=== PATIENT | female | born 1975 | race Caucasian/White ===

== ENCOUNTER 2018-06-13 11:34 | Emergency (ER) | payer BC ==
--- OUTSIDE RECORDS SUMMARY | 2018-06-13 11:37 | XMS REPORT ---
:1975 [facility] Address [address] [place] [address] Dr. Lewis[address] [place] [id number] Care Team Providers Name Role Phone DR LESLEY NORTON Unavailable Unavailable Problems This patient has no known problems. Allergies, Adverse Reactions, Alerts This patient has no known allergies or adverse reactions. Medications This patient has no known medications. Encounters Start End Encounter Admission Attending Care Care Encounter Date/Time Date/Time Type Type Clinicians Facility Department ID 2018-04-13 2018-04-13 Outpatient C ARIELA NORTON [facility] [id number] 12:07:00 14:09:00 LESLEY
--- NOTE | 2018-06-13 12:58 | EKG ---
Test Date: 2018-05-13 Test Time: 12:39:34 [employer]: YULIA MEASUREMENT RESULTS: Intervals: Rate: 56 CA: 150 QRSD: 92 QT: 430 QTc: 414 [place]: P: 66 CA: 150 QRS: 73 T: 70 INTERPRETIVE STATEMENTS: Sinus bradycardia Otherwise normal ECG No previous ECG available for comparison Electronically Signed On 06-13-18 12:57:51 RENTAL SALES ASSOCIATE by Aki Goff
[2018-06-13 13:49] LABS: Urine Blood NEGATIVE (NEG); Urine Glucose NEGATIVE (NEG); Urine Protein NEGATIVE (NEG); Urine Specific Gravity 1.015 (1.005-1.030); Urine pH 7.5 (5.0-7.0)
--- NOTE | 2018-06-13 13:58 | RAD REPORT ---
EXAM DESCRIPTION: US - Extrem Venous W Compress Armani - 06/13/2018 1:43 pm CLINICAL HISTORY: SWELLING Bilateral leg edema and swelling. COMPARISON: No comparisons TECHNIQUE: Real-time sonographic interrogation of the left and right lower extremity deep venous sys tems was performed. FINDINGS: Normal compressibility, flow augmentation, phasic flow and spontaneous flow is identified in both the left and right lower extremity deep venous systems. Thrombus is present in both greater saphenous veins. The thrombus on each side is seen terminate appr oximately 1.5 cm from the common femoral veins. Several varicose veins noted in the right calf also d emonstrates thrombus. IMPRESSION: No sonographic evidence of left or right lower extremity deep venous thrombosis. Superfi cial venous thrombosis is seen involving both greater saphenous veins and several varicose veins in t he right calf.
--- NOTE | 2018-06-13 14:05 | RAD REPORT ---
EXAM DESCRIPTION: RAD - Chest Single View - 06/13/2018 1:59 pm CLINICAL HISTORY: swelling lower extremities Chest pain. COMPARISON: No comparisons FINDINGS: Portable technique limits examination quality. The lungs are grossly clear. The heart is normal in size. No displaced fractures. IMPRESSION: No acute intrathoracic process suspected.
[2018-06-13 14:30] LABS: Absolute Lymphocytes (CBC) 1.3 K/uL (0.7-4.9); Absolute Monocytes 0.2 K/uL (0.1-1.3); Absolute Neutrophil 2.5 K/uL (1.8-8.0); Basophils % 0.4 % (0-1.3); Eosinophils % 2.4 % (0-4.4); Hematocrit 34.3 % (36.0-45.0); Lymphocytes % 31.3 % (15.3-44.8); MPV 9.1 fL (7.6-11.3); Monocytes % 4.8 % (3.3-12.3); RBC Red Blood Cell Count 3.64 M/uL (3.86-4.86)
[2018-06-13 14:34] LABS: Protime INR 1.09
[2018-06-13 14:46] LABS: ALT/SGPT 15 U/L (12-78); AST/SGOT 19 U/L (15-37); Albumin 3.6 g/dL (3.4-5.0); Alkaline Phosphatase 61 U/L (45-117); BUN Blood Urea Nitrogen 12 mg/dL (7-18); Bicarbonate 29 mmol/L (21-32); Bilirubin Direct 0.2 mg/dL (0-0.2); Bilirubin Total 0.4 mg/dL (0.2-1.0); Glucose Level 87 mg/dL (74-106); Magnesium 1.8 mg/dL (1.8-2.4); NT PRO-BNP 31 pg/mL (<125); Protein, Total 6.5 g/dL (6.4-8.2); Sodium Level 146 mmol/L (136-145); Troponin (Emerg Dept Use Only) < 0.02 ng/mL (0.0-0.045)
[2018-06-13 14:51] LABS: T3 Free 3.49 pg/mL (2.18-3.98); Thyroid Stimulating Hormone 1.09 uIU/mL (0.360-3.740)
--- NOTE | 2018-06-13 15:44 | RAD REPORT ---
EXAM DESCRIPTION: CT - Chest For Pe Angio - 06/13/2018 3:28 pm CLINICAL HISTORY: Chest pain COMPARISON: None. TECHNIQUE: Dynamically enhanced axial 3 mm thick images of the chest were obtained during administra tion of <100> mL Isovue 370 IV contrast. Coronal and oblique reconstruction images were generated and reviewed. Exam utilizes a protocol for optimal evaluation of pulmonary arterial tree. Maximum intensity projections 3D imaging was utilized All CT scans are performed using dose optimization technique as appropriate and may include automated exposure control or mA/KV adjustment according to patient size. FINDINGS: A pulmonary embolus is not seen. A thoracic aortic aneurysm is not noted. A pleural effusion is not seen. A pericardial effusion is not seen. A lung consolidation is not present. Small to moderate hiatal hernia. Wall of the distal esophagus appears thickened IMPRESSION: Negative for a pulmonary embolism. The wall of the distal esophagus appears thickened which may indicate pathology such as inflammation or mass
--- NOTE | 2018-06-13 16:41 | ER ---
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 Has had this happen in the past and the only abnormality was elevated potassium, reports these episodes are similar to those feelings. Transition of care: patient was not received from another setting of care. Onset of symptoms was June 13, 2018. Risk Assessment: Do you want to hurt yourself or someone else? Patient reports no desire to harm self or others. Initial Sepsis Screen: Does the patient meet any 2 criteria? No. Patient's initial sepsis screen is negative. Does the patient have a suspected source of infection? No. Patient's initial sepsis screen is negative. Care prior to arrival: None. 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 - Social history:: Smoking status: Patient/guardian denies using tobacco. - Ebola Screening: : Patient negative for fever greater than or equal to 101.5 degrees Fahrenheit, and additional compatible Ebola Virus Disease symptoms Patient denies exposure to infectious person Patient denies travel to an Ebola-affected area in the 21 days before illness onset No symptoms or risks identified at this time. Screenin:15 Abuse screen: Denies threats or abuse. Denies injuries from another. Nutritional ca1 screening: No deficits noted. Tuberculosis screening: No symptoms or risk factors identified. Fall Risk None identified. Fall Risk IV access (20 points). Assessment: 13:15 General: Appears in no apparent distress. comfortable, Behavior is calm, cooperative, ca1 appropriate for age. Pain: Denies pain. Neuro: Level of Consciousness is awake, alert, obeys commands, Oriented to person, place, time, situation. Cardiovascular: Heart tones S1 S2 present Capillary refill < 3 seconds Patient's skin is warm and dry. Pulses are all present. Respiratory: Airway is patent Respiratory effort is even, unlabored, Breath sounds are clear bilaterally. GI: Abdomen is flat, non-distended, Bowel sounds present X 4 quads. Abd is soft and non tender X 4 quads. : No signs and/or symptoms were reported regarding the genitourinary system. EENT: No signs and/or symptoms were reported regarding the EENT system. Derm: Skin is intact, is healthy with good turgor, Skin is pink, warm \T\ dry. Musculoskeletal: Circulation, motion, and sensation intact. Swelling present in right leg and left leg. 13:30 Reassessment: Patient to US. . ca1 14:05 Reassessment: Patient appears in no apparent distress at this time. Patient and/or ca1 family updated on plan of care and expected duration. Pain level reassessed. Patient is alert, oriented x 3, equal unlabored respirations, skin warm/dry/pink. PT back from US. 15:33 Reassessment: Patient appears in no apparent distress at this time. Patient and/or ca1 family updated on plan of care and expected duration. Pain level reassessed. Patient is alert, oriented x 3, equal unlabored respirations, skin warm/dry/pink. Pt back from CT scan. 16:30 Reassessment: Patient appears in no apparent distress at this time. Patient is alert, ca1 oriented x 3, equal unlabored respirations, skin warm/dry/pink. Dr. Orozco at bedside. 16:50 Reassessment: Waiting for Xarelto po from pharmacy. . ca1 Vital Signs: 12:11 BP 117 / 71; Pulse 78; Resp 16 S; Temp 97.1; Pulse Ox 100% ; sg 13:15 BP 103 / 65; Pulse 63; Resp 17; Pulse Ox 100% on R/A; ca1 14:22 BP 103 / 65; Pulse 63; Resp 16; Pulse Ox 100% ; ca1 15:33 BP 93 / 58; Pulse 63; Resp 18; Pulse Ox 98% on R/A; ca1 16:09 BP 99 / 66; Pulse 67; Resp 18; Pulse Ox 97% on R/A; ca1 16:45 BP 104 / 75; Pulse 59; Resp 18; Pulse Ox 100% ; ca1 ED Course: 11:37 Patient arrived in ED. sb2 11:38 Basim Roblero DO is Private Physician. sb2 12:09 Arm band placed on. sg 12:11 Triage completed. sg 12:13 Quirino Mora PA is PHCP. cp 12:14 Wayne Orozco MD is Attending Physician. cp 12:49 EKG done, by staff nuclear medicine technologist. reviewed by Quirino REYNOSO. at1 13:04 Nina Merino, RN is Primary Nurse. 13:15 Patient has correct armband on for positive identification. Placed in gown. Bed in low ca1 position. Call light in reach. Side rails up X 1. ui software engineer on. Pulse ox on. NIBP on. 13:32 US Extremity Venous W Compression Armani In Process Unspecified. EDMS 13:57 X-ray completed. Portable x-ray completed in exam room. Patient tolerated procedure sw well. 14:00 Missed attempt(s): 20 gauge in left antecubital area. ca1 14:15 Inserted saline lock: 20 gauge in right antecubital area, using aseptic technique. ca1 Blood collected. 15:30 CT Chest For PE Angio In Process Unspecified. EDMS 16:38 Basim Roblero DO is Referral Physician. cp 16:57 No provider procedures requiring assistance completed. ca1 17:46 IV discontinued, intact, bleeding controlled, No redness/swelling at site. Pressure ca1 dressing applied. Administered Medications: 17:45 Drug: Xarelto 10 mg Route: PO; ca1 17:45 Follow up: Response: Medication administered at discharge. ca1 Outcome: 16:39 Discharge ordered by MD. cp 17:46 Discharged to home ambulatory, with family. ca1 17:46 Condition: stable 17:46 Discharge instructions given to patient, family, Instructed on discharge instructions, follow up and referral plans. medication usage, Demonstrated understanding of instructions, follow-up care, medications, Prescriptions given X 2. 17:47 Patient left the ED. ca1 Signatures: Dispatcher [employer] EDMS Nina Merino, Eliel Vargas RN, ch, RN RN sg Essie Hay, cardiac rehabilitation program director EKG Tat1 Kacy Kilpatrick Quirino Mora PA PA cp Billeau, Sheri sb2 Darlene Velez RN RN ca1 Corrections: (The following items were deleted from the chart) 12:49 12:48 EKG done, by staff nuclear medicine technologist. reviewed by Wayne Orozco MD at1 at1 14:25 13:40 Reassessment: Patient to US. . ca1 ca1
--- NOTE | 2018-06-13 16:41 | EDPHYS ---
Physician Documentation [facility] Name: Dee Sagastume Age: 43 yrs Sex: Female : 1975 Arrival Date: 06/13/2018 Time: 11:37 Bed 27 Private MD: Basim Roblero ED Physician Wayne Orozco HPI: 06/13 12:39 This 43 yrs old Female presents to ER via Ambulatory with complaints of Feet cp Swelling, Palpitations. 12:39 The patient presents with a history of heart racing. Context: The symptoms occur cp without known cause. Onset: The symptoms/episode began/occurred 1 month(s) ago. Duration: The patient or guardian reports multiple episodes, with no pattern. Associated signs and symptoms: Pertinent positives: lower leg swelling. 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 - Social history:: Smoking status: Patient/guardian denies using tobacco. - Ebola Screening: : Patient negative for fever greater than or equal to 101.5 degrees Fahrenheit, and additional compatible Ebola Virus Disease symptoms Patient denies exposure to infectious person Patient denies travel to an Ebola-affected area in the 21 days before illness onset No symptoms or risks identified at this time. ROS: 12:43 Eyes: Negative for injury, pain, redness, and discharge. cp 12:43 Constitutional: Positive for fatigue, Negative for body aches, chills, fever, poor PO intake. 12:43 ENT: Negative for drainage from ear(s), ear pain, sore throat, difficulty swallowing, difficulty handling secretions. 12:43 Neck: Negative for pain with movement, pain at rest, stiffness, swollen nodes, tenderness. 12:43 Cardiovascular: Positive for edema, palpitations, Negative for chest pain. 12:43 Respiratory: Negative for cough, shortness of breath, wheezing. 12:43 Abdomen/GI: Negative for abdominal pain, nausea, vomiting, and diarrhea, constipation, black/tarry stool, rectal bleeding. 12:43 Back: Negative for pain at rest, pain with movement. 12:43 Skin: Negative for cellulitis, diaphoresis, rash. 12:43 Neuro: Negative for altered mental status, dizziness, headache, syncope, near syncope, weakness. Exam: 12:45 ECG was reviewed by the Attending Physician. cp 12:50 Constitutional: The patient appears in no acute distress, alert, awake, cp non-diaphoretic, non-toxic, well developed, well nourished. 12:50 Head/Face: Normocephalic, atraumatic. cp 12:50 Eyes: Periorbital structures: appear normal, Pupils: equal, round, and reactive to light and accomodation, Extraocular movements: intact throughout, Conjunctiva: normal, no exudate, no injection, Sclera: no appreciated abnormality, Lids and lashes: appear normal, bilaterally. 12:50 ENT: External ear(s): are unremarkable, Ear canal(s): are normal, clear, TM's: are normal, no evidence of bulging, no erythema, Nose: is normal, Mouth: Lips: moist, Oral mucosa: pink and intact, moist, Posterior pharynx: is normal, airway is patent, no erythema, no exudate, Voice: is normal. 12:50 Neck: External neck: is normal, ROM/movement: is normal, is supple, without pain, no range of motions limitations, no meningismus, no nuchal rigidity. 12:50 Chest/axilla: Inspection: normal, Palpation: is normal, no crepitus, no tenderness. 12:50 Cardiovascular: Rate: normal, Rhythm: regular, Pulses: Pulses are 2+ in right radial artery, right dorsalis pedis artery, left radial artery and left dorsalis pedis artery. Heart sounds: murmur, not appreciated, Edema: pedal edema, that is mild, ankle edema, that is mild, JVD: is not appreciated. 12:50 Respiratory: the patient does not display signs of respiratory distress, Respirations: normal, no use of accessory muscles, no retractions, no splinting, labored breathing, is not present, Breath sounds: are clear throughout, no decreased breath sounds, no stridor, no wheezing. 12:50 Abdomen/GI: Inspection: abdomen appears normal, Bowel sounds: active, all quadrants, Palpation: abdomen is soft and non-tender, in all quadrants, voluntary guarding, is not appreciated, involuntary guarding, is not appreciated. 12:50 Back: pain, is absent, ROM is normal. 12:50 Skin: cellulitis, is not appreciated, no rash present. 12:50 Neuro: Orientation: to person, place \T\ time. Mentation: appropriate for stated age, Cerebellar function: is grossly normal, Motor: moves all fours, strength is normal, Sensation: is normal. Vital Signs: 12:11 BP 117 / 71; Pulse 78; Resp 16 S; Temp 97.1; Pulse Ox 100% ; sg 13:15 BP 103 / 65; Pulse 63; Resp 17; Pulse Ox 100% on R/A; ca1 14:22 BP 103 / 65; Pulse 63; Resp 16; Pulse Ox 100% ; ca1 15:33 BP 93 / 58; Pulse 63; Resp 18; Pulse Ox 98% on R/A; ca1 16:09 BP 99 / 66; Pulse 67; Resp 18; Pulse Ox 97% on R/A; ca1 16:45 BP 104 / 75; Pulse 59; Resp 18; Pulse Ox 100% ; ca1 MDM: 12:14 Patient medically screened. cp 16:21 Physician consultation: DR Choi, oncologist, recommends anticoagulation treatment cp with Xarelto 10 mg daily for next 45 days, repeat US with follow-up 1 week family physician. 16:25 Data reviewed: vital signs, nurses notes, lab test result(s), EKG, radiologic studies, cp CT scan, plain films. 16:25 Differential diagnosis: arrythmia, dehydration, CHF, DVT. Test interpretation: by ED cp physician or midlevel provider: ECG, plain radiologic studies. 06/13 12:37 Order name: Basic Metabolic Panel; Complete Time: 14:53 cp 06/13 15:39 Interpretation: Normal except: NA 146; CL 110; CA 8.4. cp 06/13 12:37 Order name: CBC with Diff; Complete Time: 14:53 cp 06/13 16:16 Interpretation: Normal except: WBC 4.1; RBC 3.64; HGB 11.5; HCT 34.3. cp 06/13 12:37 Order name: LFT's; Complete Time: 14:53 cp 06/13 12:37 Order name: Magnesium; Complete Time: 14:53 cp 06/13 12:37 Order name: NT PRO-BNP; Complete Time: 14:53 cp 02/04 12:37 Order name: PT-INR; Complete Time: 14:53 cp 02/04 12:37 Order name: Troponin (emerg Dept Use Only); Complete Time: 14:53 cp 02/04 12:37 Order name: XRAY Chest (1 view) cp 02/ 12:37 Order name: US Extremity Venous W Compression Armani; Complete Time: 14:53 cp 02/04 12:41 Order name: TSH; Complete Time: 15:38 cp 02/04 12:41 Order name: T3 Free; Complete Time: 15:38 cp 02/04 13:35 Order name: Urine Dipstick--Ancillary (enter results); Complete Time: 14:40 bd 02/04 14:40 Interpretation: Normal except: UPH 7.5. cp 02/04 14:52 Order name: RAD; Complete Time: 14:53 EDMS /04 14:56 Order name: CT Chest For PE Angio; Complete Time: 16:15 cp 02/04 12:37 Order name: EKG; Complete Time: 12:38 cp 02/04 12:37 Order name: Cardiac monitoring; Complete Time: 13:56 cp 02/04 12:37 Order name: EKG - Nurse/Tech; Complete Time: 14:14 cp 02/04 12:37 Order name: IV Saline Lock; Complete Time: 14:14 cp 02/04 12:37 Order name: Labs collected and sent; Complete Time: 14:14 cp 02/04 12:37 Order name: O2 Per Protocol; Complete Time: 14:15 cp 02/04 12:37 Order name: O2 Sat Monitoring; Complete Time: 14:15 cp 02/04 12:37 Order name: Urine Dipstick-Ancillary (obtain specimen); Complete Time: 13:12 cp 02/04 12:37 Order name: Urine Test (obtain specimen); Complete Time: 13:12 cp EC:45 Rate is 56 beats/min. Rhythm is regular. HI interval is normal. QRS interval is normal. cp QT interval is normal. T waves are Inverted in lead aVL. Interpreted by me. Reviewed by me. Administered Medications: 17:45 Drug: Xarelto 10 mg Route: PO; ca1 17:45 Follow up: Response: Medication administered at discharge. ca1 Disposition: 18:18 Co-signature as Attending Physician, Wayne Orozco MD. rn Disposition: 06/13/18 16:39 Discharged to Home. 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 - Condition is Stable. - Discharge Instructions: Venous Thromboembolism, Venous Thromboembolism Prevention. - Prescriptions for Xarelto 10 mg Oral tablet - take 1 tablet by ORAL route once daily for 6 weeks; 45 tablet. Protonix 40 mg Oral Tablet - take 1 tablet by ORAL route once daily; 30 tablet. - Medication Reconciliation Form, Thank You Letter, Antibiotic Education, Prescription Opioid Use form. - Follow up: Bsaim Roblero DO; When: 1 week; Reason: repeat bilateral ultrasound of legs and follow-up for today's results. - Problem is new. - Symptoms have improved. Signatures: Dispatcher [employer] EDEliel Fair RN RN Wayne Nielsen MD MD rn Quirino Mora PA PA cp Acob, Darlene RN RN ca1 Corrections: (The following items were deleted from the chart) 15:39 15:38 Normal except: NA 146; CL 110. cp cp 17:47 16:39 06/13/2018 16:39 Discharged to Home. Impression: Embolism and thrombosis of ca1 superficial veins of lower extremities, bilateral. Condition is Stable. Forms are Medication Reconciliation Form, Thank You Letter, Antibiotic Education, Prescription Opioid Use. Follow up: Basim Roblero; When: 1 week; Reason: repeat bilateral ultrasound of legs and follow-up for today's results. Problem is new. Symptoms have improved. cp
[2018-06-13] MEDS ORDERED: RIVAROXABAN 10 MG TABLET PO SCH (17:00)
[2018-06-13] MEDS ORDERED: RIVAROXABAN 10 MG TABLET PO ONE (17:00)
== END 2018-06-13 17:47 | disposition home or self-care (01) ==
LOC: ER 11:34
DX: I82.813 Embolism and thrombosis of superficial veins of lower extremities, bilateral (principal); Z88.0 Allergy status to penicillin; Z91.040 Latex allergy status
CPT/HCPCS: 36415; 71045; 71275; 80048; 80076; 81003; 83735; 83880; 84443; 84481; 84484; 85025; 85610; 93005; 93970; 99285; Q9967